=== PATIENT | female | born 2000 | race American Indian/Alaskan Native ===

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

== ENCOUNTER 2021-06-23 11:10 | Emergency (ER) | payer MEDICAID ==
[2021-06-23] MEDS ORDERED: ONDANSETRON 4 MG ODT TAB PO ONE (13:01)
--- NOTE | 2021-06-23 13:08 | Emergency Department Report ---
ED Female HPI - General Chief complaint: Abdominal Pain Stated complaint: NAUSEA/VOMITTING Time Seen by Provider: 06/23/21 12:58 Source: patient Mode of arrival: Ambulatory Limitations: No Limitations - History of Present Illness Initial comments: 20-year-old -A[place]ij[place] female presents to the emergency room complaining of nausea and vomiting and pelvic discomfort. She denies any vaginal bleeding. She states that she just found out she was 4 days ago. Patient has not followed up with her SPARKER AND PATCHER. Her last menstrual cycle was 05/15/2021. She is 1. She states that her test was done by urine. MD Complaint: pelvic pain, other (nausea and vomiting) Onset/Timin -: days(s) Location: suprapubic Severity: moderate Quality: cramping, sharp Consistency: intermittent Improves with: none Worsens with: none Are you Now?: Yes Last Menstrual Period: 05/15/21 EDC: 02/19/22 Associated Symptoms: abdominal pain, nausea/vomiting, loss of appetite. denies: vaginal discharge, vaginal bleeding, fever/chills - Related Data Sexually active: Yes : 1 (found out yesterday she was . ) Previous Rx's Medication Instructions Recorded Last Taken Type metroNIDAZOLE [Flagyl] 500 mg PO Q12HR #14 tab 07/22/19 Unknown Rx Azithromycin 1,000 mg PO ONCE #2 tablet 12/02/19 Unknown Rx Ibuprofen [Motrin] 600 mg PO Q8H PRN #20 tablet 12/02/19 Unknown Rx Clotrimazole [Antifungal] 113 gm TP BID 21 Days #1 tube 12/16/19 Unknown Rx Fluconazole (Nf) [Diflucan TAB] 150 mg PO ONCE 1 Days #1 tablet 12/16/19 Unknown Rx Ibuprofen [Motrin Ib] 600 - 800 mg PO TID PRN #20 capsule 03/01/20 Unknown Rx Sulfamethoxazole/Trimethoprim 1 each PO BID 5 Days #10 tablet 03/01/20 Unknown Rx [Bactrim DS TAB] Nitrofurantoin [place]/M-Cryst 100 mg PO Q12HR 7 Days #14 capsule 06/23/21 Unknown Rx [Macrobid CAP] Ondansetron [Zofran Odt] 4 mg PO Q8HR PRN #12 tab.rapdis 06/23/21 Unknown Rx Allergies Allergy/AdvReac Type Severity Reaction Status Date / Time No Known Allergies Allergy Verified 07/21/19 19:54 ED Review of Systems ROS: Stated complaint: NAUSEA/VOMITTING Other details as noted in HPI Comment: All other systems reviewed and negative ED Past Medical Hx - Social History Smoking Status: Never Smoker Substance Use Type: None - Medications Home Medications: Home Medications Medication Instructions Recorded Confirmed Last Taken Type metroNIDAZOLE [Flagyl] 500 mg PO Q12HR #14 tab 07/22/19 Unknown Rx Azithromycin 1,000 mg PO ONCE #2 tablet 12/02/19 Unknown Rx Ibuprofen [Motrin] 600 mg PO Q8H PRN #20 tablet 12/02/19 Unknown Rx Clotrimazole [Antifungal] 113 gm TP BID 21 Days #1 tube 12/16/19 Unknown Rx Fluconazole (Nf) [Diflucan TAB] 150 mg PO ONCE 1 Days #1 tablet 12/16/19 Unknown Rx Ibuprofen [Motrin Ib] 600 - 800 mg PO TID PRN #20 capsule 03/01/20 Unknown Rx Sulfamethoxazole/Trimethoprim 1 each PO BID 5 Days #10 tablet 03/01/20 Unknown Rx [Bactrim DS TAB] Nitrofurantoin [place]/M-Cryst 100 mg PO Q12HR 7 Days #14 capsule 06/23/21 Unknown Rx [Macrobid CAP] Ondansetron [Zofran Odt] 4 mg PO Q8HR PRN #12 tab.rapdis 06/23/21 Unknown Rx ED Physical Exam - General Limitations: No Limitations General appearance: alert, in no apparent distress - Head Head exam: Present: atraumatic, normocephalic - Eye Eye exam: Present: normal appearance - ENT ENT exam: Present: mucous membranes moist - Neck Neck exam: Present: normal inspection - Respiratory Respiratory exam: Present: normal lung sounds bilaterally. Absent: respiratory distress - Cardiovascular Cardiovascular Exam: Present: regular rate, normal rhythm. Absent: systolic murmur, diastolic murmur, rubs, gallop - GI/Abdominal GI/Abdominal exam: Present: soft, normal bowel sounds - Extremities Exam Extremities exam: Present: normal inspection - Back Exam Back exam: Present: normal inspection - Neurological Exam Neurological exam: Present: alert, oriented X3 - Psychiatric Psychiatric exam: Present: normal affect, normal mood - Skin Skin exam: Present: warm, dry, intact, normal color. Absent: rash ED Course Vital Signs 06/23/21 11:51 Temperature 98.6 F Pulse Rate 69 Respiratory 16 Rate Blood Pressure 112/48 [Left] O2 Sat by Pulse 100 Oximetry ED Medical Decision Making - Lab Data Result diagrams: 06/23/21 13:38 06/23/21 13:38 Lab Results 06/23/21 06/23/21 06/23/21 Range/Units 13:38 13:38 13:38 WBC 4.8 (4.5-11.0) K/mm3 RBC 4.61 (3.65-5.03) M/mm3 Hgb 13.1 (10.1-14.3) gm/dl Hct 40.5 (30.3-42.9) % MCV 88 (79-97) fl MCH 28 (28-32) pg MCHC 32 (30-34) % RDW 13.4 (13.2-15.2) % Plt Count 290 (140-440) K/mm3 Lymph % (Auto) 30.8 (13.4-35.0) % [place] % (Auto) 11.5 H (0.0-7.3) % Eos % (Auto) 0.0 (0.0-4.3) % Baso % (Auto) 0.7 (0.0-1.8) % Lymph # (Auto) 1.5 (1.2-5.4) K/mm3 [place] # (Auto) 0.5 (0.0-0.8) K/mm3 Eos # (Auto) 0.0 (0.0-0.4) K/mm3 Baso # (Auto) 0.0 (0.0-0.1) K/mm3 Seg Neutrophils % 57.0 (40.0-70.0) % Seg Neutrophils # 2.7 (1.8-7.7) K/mm3 Sodium 140 (137-145) mmol/L Potassium 3.9 (3.6-5.0) mmol/L Chloride 102.2 (98-107) mmol/L Carbon Dioxide 21 L (22-30) mmol/L Anion Gap 21 mmol/L BUN 8 (7-17) mg/dL Creatinine 0.5 L (0.6-1.2) mg/dL Estimated GFR > 60 ml/min BUN/Creatinine Ratio 16 % Glucose 117 H (65-100) mg/dL Calcium 9.6 (8.4-10.2) mg/dL Total Bilirubin 0.20 (0.1-1.2) mg/dL AST 14 (5-40) units/L ALT 8 (7-56) units/L Alkaline Phosphatase 72 (35-129) units/L Total Protein 8.3 H (6.3-8.2) g/dL Albumin 4.6 (3.9-5) g/dL Albumin/Globulin Ratio 1.2 % HCG, Quant 8886 H (0-4) mIU/mL Urine Color (Yellow) Urine Turbidity (Clear) Urine pH (5.0-7.0) Ur Specific [place] (1.003-1.030) Urine Protein (Negative) mg/dL Urine Glucose (UA) (Negative) mg/dL Urine Ketones (Negative) mg/dL Urine Blood (Negative) Urine Nitrite (Negative) Urine Bilirubin (Negative) Urine Urobilinogen (<2.0) mg/dL Ur Leukocyte Esterase (Negative) Urine WBC (Auto) (0.0-6.0) /HPF Urine RBC (Auto) (0.0-6.0) /HPF U Epithel Cells (Auto) (0-13.0) /HPF Urine Bacteria (Auto) (Negative) /HPF Urine Mucus /HPF Blood Type Ord Rhogam Gestat Weeks WEEKS 06/23/21 06/23/21 Range/Units 13:38 Unknown WBC (4.5-11.0) K/mm3 RBC (3.65-5.03) M/mm3 Hgb (10.1-14.3) gm/dl Hct (30.3-42.9) % MCV (79-97) fl MCH (28-32) pg MCHC (30-34) % RDW (13.2-15.2) % Plt Count (140-440) K/mm3 Lymph % (Auto) (13.4-35.0) % [place] % (Auto) (0.0-7.3) % Eos % (Auto) (0.0-4.3) % Baso % (Auto) (0.0-1.8) % Lymph # (Auto) (1.2-5.4) K/mm3 [place] # (Auto) (0.0-0.8) K/mm3 Eos # (Auto) (0.0-0.4) K/mm3 Baso # (Auto) (0.0-0.1) K/mm3 Seg Neutrophils % (40.0-70.0) % Seg Neutrophils # (1.8-7.7) K/mm3 Sodium (137-145) mmol/L Potassium (3.6-5.0) mmol/L Chloride (98-107) mmol/L Carbon Dioxide (22-30) mmol/L Anion Gap mmol/L BUN (7-17) mg/dL Creatinine (0.6-1.2) mg/dL Estimated GFR ml/min BUN/Creatinine Ratio % Glucose (65-100) mg/dL Calcium (8.4-10.2) mg/dL Total Bilirubin (0.1-1.2) mg/dL AST (5-40) units/L ALT (7-56) units/L Alkaline Phosphatase (35-129) units/L Total Protein (6.3-8.2) g/dL Albumin (3.9-5) g/dL Albumin/Globulin Ratio % HCG, Quant (0-4) mIU/mL Urine Color Yellow (Yellow) Urine Turbidity Slightly-cloudy (Clear) Urine pH 5.0 (5.0-7.0) Ur Specific [place] 1.026 (1.003-1.030) Urine Protein 30 mg/dl (Negative) mg/dL Urine Glucose (UA) Neg (Negative) mg/dL Urine Ketones 80 (Negative) mg/dL Urine Blood Sm (Negative) Urine Nitrite Pos (Negative) Urine Bilirubin Neg (Negative) Urine Urobilinogen < 2.0 (<2.0) mg/dL Ur Leukocyte Esterase Tr (Negative) Urine WBC (Auto) 8.0 H (0.0-6.0) /HPF Urine RBC (Auto) 3.0 (0.0-6.0) /HPF U Epithel Cells (Auto) 14.0 H (0-13.0) /HPF Urine Bacteria (Auto) 4+ (Negative) /HPF Urine Mucus 3+ /HPF Blood Type A POSITIVE Ord Rhogam Gestat Weeks Rh pos WEEKS - Radiology Data Radiology results: report reviewed [facility] [address] [place] [address] Ultrasound Report Signed Patient: SIMONE GATICA MR#: [id number] : 2000 Acct:[id number] Age/Sex: 20 / F ADM Date: 06/23/21 Loc: ED Attending Dr: Ordering Physician: CONNOR MANLEY Date of Service: 06/23/21 Procedure(s): US OB transvaginal Accession Number(s): [id number] cc: CONNOR MANLEY ULTRASOUND OBSTETRIC INDICATION / CLINICAL INFORMATION: Pelvic pain . TECHNIQUE: Transabdominal and Transvaginal. COMPARISON: None available. FINDINGS: GESTATIONAL SAC: Small intrauterine gestational sac YOLK SAC: Yolk sac visualized EMBRYO/FETUS: Not yet visualized. No heart tones detected ADNEXA: Right ovary within normal limits. Small 2.2 x 1.4 cm complex left ovarian corpus luteal cyst FREE FLUID: None. ADDITIONAL FINDINGS: None. IMPRESSION: 1. Probable early IUP. Follow-up beta-hCG and or sound recommended to confirm viability. Signer Name: Tim Rodriguez MD Signed: 06/23/2021 6:24 PM Workstation Name: [id number] Transcribed By: TL Dictated By: Tim Rodriguez MD Electronically Authenticated By: Tim Rodriguez MD Signed Date/Time: 06/23/211823 DD/ 20 TD/TT: Print Cancel - Medical Decision Making 20-year-old -Azerbaijani female presents to the emergency room complaining of nausea and vomiting and pelvic discomfort. She denies any vaginal bleeding. She states that she just found out she was 4 days ago. Patient has not followed up with her [facility]. Her last menstrual cycle was 05/15/2021. She is 1. She states that her test was done by urine. hCG is 8886. Ultrasound shows a very early IUP a recommend repeat quant level and repeat ultrasound. Patient's urinalysis shows she has a urinary tract infection patient be treated with Macrobid. Patient is referred to [facility] for repeat hCG recheck of her urine as well as a repeat ultrasound in 2 weeks. Critical care attestation.: If time is entered above; I have spent that time in minutes in the direct care of this critically ill patient, excluding procedure time. ED Disposition Clinical Impression: Nausea and vomiting during UTI (urinary tract infection) during Qualifiers: Trimester: first trimester Qualified Code(s): O23.41 - Unspecified infection of urinary tract in , first trimester Disposition: 01 HOME / SELF CARE / HOMELESS Is pt being admited?: No Does the pt Need Aspirin: No Condition: Stable Instructions: Abdominal Pain (ED), and Urinary Tract Infection, Hyperemesis Gravidarum Additional Instructions: hCG is 8886. Ultrasound shows a very early intrauterine . Urinalysis shows to have a urinary tract infection. You need to complete your antibiotics. Start your vitamins. Follow-up at [facility] for repeat hCG and ultr asound. Be sure to increase your water intake by 2 to 3 L daily. Prescriptions: Nitrofurantoin [place]/M-Cryst [Macrobid CAP] 100 mg PO Q12HR 7 Days #14 capsule Ondansetron [Zofran Odt] 4 mg PO Q8HR PRN #12 tab.rapdis PRN Reason: Nausea And Vomiting Referrals: PRIMARY CAREMD [Primary Care Provider] - 3-5 Days [facility] [Provider Group] - 3-5 Days [facility] [Provider Group] - 3-5 Days [facility] [Provider Group] - 3-5 Days Forms: Work/School Release Form(ED) Time of Disposition: 18:43
[2021-06-23 14:03] LABS: Basophils % (Auto) 0.7 % (0.0-1.8); Hematocrit 40.5 % (30.3-42.9); Hemoglobin 13.1 gm/dl (10.1-14.3); Lymphocytes # (Auto) 1.5 K/mm3 (1.2-5.4); Lymphocytes % (Auto) 30.8 % (13.4-35.0); Mean Corpuscular HGB Conc 32 % (30-34); Mean Corpuscular Volume 88 fl (79-97); Monocytes # (Auto) 0.5 K/mm3 (0.0-0.8); Monocytes % (Auto) 11.5 % (0.0-7.3); Platelet Count 290 K/mm3 (140-440); Red Blood Count 4.61 M/mm3 (3.65-5.03); Red Cell Distribution Width 13.4 % (13.2-15.2)
[2021-06-23 14:14] LABS: Bacteria,Urine 4+ /HPF (Negative); Bilirubin,Urine NEG (Negative); Blood,Urine SM (Negative); Color,Urine Yellow (Yellow); Mucus,Urine 3+ /HPF; Urobilinogen,Urine < 2.0 mg/dL (<2.0)
[2021-06-23 14:45] LABS: Alanine Aminotransferase 8 units/L (7-56); Albumin 4.6 g/dL (3.9-5); Blood Urea Nitrogen 8 mg/dL (7-17); Calcium 9.6 mg/dL (8.4-10.2); Hemolysis Index 6
[2021-06-23 14:46] LABS: BUN/Creatinine Ratio 16
--- NOTE | 2021-06-23 18:28 | Ultrasound Report ---
ULTRASOUND OBSTETRIC INDICATION / CLINICAL INFORMATION: Pelvic pain . TECHNIQUE: Transabdominal and Transvaginal. COMPARISON: None available. FINDINGS: GESTATIONAL SAC: Small intrauterine gestational sac YOLK SAC: Yolk sac visualized EMBRYO/FETUS: Not yet visualized. No heart tones detected ADNEXA: Right ovary within normal limits. Small 2.2 x 1.4 cm complex left ovarian corpus luteal cyst FREE FLUID: None. ADDITIONAL FINDINGS: None. IMPRESSION: 1. Probable early IUP. Follow-up beta-hCG and or sound recommended to confirm viability. Signer Name: Tim Rodriguez MD Signed: 06/23/2021 6:24 PM Workstation Name: [id number]
[2021-06-23 18:48] VITALS: BP 115/37
== END 2021-06-23 18:53 | disposition home or self-care (01) ==
LOC: ED 11:10
DX: O21.9 Vomiting of pregnancy, unspecified (principal); O23.41 Unspecified infection of urinary tract in pregnancy, first trimester; N39.0 Urinary tract infection, site not specified
CPT/HCPCS: 36415; 76801; 76817; 80053; 81001; 84702; 85025; 86900; 86901; 99284; J3490; Q0162

== ENCOUNTER 2022-01-31 16:00 | Inpatient (IN) | payer MEDICAID ==
[2022-01-31] MEDS ORDERED: LACTATED RINGERS 1,000 ML IV ONE (17:15)
[2022-01-31] MEDS ORDERED: LOPERAMIDE 2 MG CAP PO PRN (17:30)
[2022-01-31] MEDS ORDERED: miSOPROStol 200 MCG TAB PR PRN (17:30)
[2022-01-31] MEDS ORDERED: ACETAMINOPHEN 325 MG TAB PO PRN (17:30)
[2022-01-31] MEDS ORDERED: NalbUPHINE 10 MG/1 ML INJ IV PRN (17:30)
[2022-01-31] MEDS ORDERED: MINERAL OIL 30 ML ORAL LIQD PO PRN (17:30)
[2022-01-31] MEDS ORDERED: ePHEDrine SULFATE 50 MG/1 ML INJ IV PRN (17:30)
[2022-01-31] MEDS ORDERED: METHYLERGONOVINE MALEATE 0.2 MG/ML VIAL IM PRN (17:30)
[2022-01-31] MEDS ORDERED: LACTATED RINGERS 1,000 ML IV SCH (17:30)
[2022-01-31] MEDS ORDERED: DINOPROSTONE 10 MG VAG SUPP VG SCH (17:30)
[2022-01-31] MEDS ORDERED: CARBOPROST TROMETHAMINE 250 MCG/1 ML INJ IM PRN (17:30)
[2022-01-31] MEDS ORDERED: TERBUTALINE 1 MG/1 ML INJ SUB-Q PRN (17:30)
[2022-01-31] MEDS ORDERED: OXYTOCIN 10 UNIT/1 ML INJ IM PRN (17:30)
--- NOTE | 2022-01-31 17:36 | History and Physical Report ---
History of Present Illness Date of examination: 01/31/22 Chief complaint: sent from office for testing d/t IUGR History of present illness: EDC Confirmation: 02/19/2022 Past History : 1 Past Medical History: Reviewed and updated today: Negative Past Surgical History: Reviewed and updated today: Negative General Comments - FH: Mother- , heart disease, thyroid disorder, HTN Social History: Previous ETOH use, quit with Risk Factors: Smoked Tobacco Use: Never smoker Smokeless Tobacco Use: Never Passive Smoke Exposure: no HIV High Risk Behavior: no Exercise: no Seatbelt Use: 100 % No Dietary Counseling Reason: pn yes Alcohol Use: no Drug Use: no Past Medical History Anesthesia Complications: negative Anemia: negative Autoimmune Disorder: negative Bleeding Disorder: negative Blood Transfusions: negative Breast Disease: negative Diabetes: negative Heart Disease: negative Hypertension: negative Hepatitis/Liver Disease: negative Kidney Disease/UTI: negative Neurologic/Epilepsy/Migraines: negative Phlebitis/Varicosities: negative Psychiatric: negative Pulmonary Disease/Asthma: negative Thyroid Disease: negative Hospitalizations: negative Surgery (Non-accessioner): Negative Infertility: negative Uterine Anomaly: negative Family Hx: Mother- , heart disease, thyroid disorder, HTN Social Hx: Previous ETOH use, quit with Infection History Hx of STD: chlamydia HIV Risk Eval: no Personal hx. of genital herpes: no Genetic History Congenital Heart Defect: Mom: no Meron Disease: Mom: no Thalassemia Mom: no Neural Tube Defect Mom: no Down's Syndrome Mom: no Quique-Sachs Mom: no Sickle Cell Disease/Trait Mom: no Hemophilia Mom: no Muscular Dystrophy Mom: no Cystic Fibrosis Mom: no [place] Chorea Mom: no Mental Retardation Mom: no Fragile X Mom: no Other Genetic/Chromosomal Disorder Mom: no Child w/other defect Mom: no Past History Past Medical History: other (see HPI) Past Surgical History: other (see HPI) CAREER LAW CLERK History: other (see HPI) Family/Genetic History: other (see HPI) Social history: single - Obstetrical History Expected Date of Delivery: 02/19/22 Actual Gestation: 37 Week(s) 2 Day(s) : 1 Para: 0 Hx # Term Pregnancies: 0 Number of Pregnancies: 0 Spontaneous Abortions: 0 Induced : 0 Number of Living Children: 0 Medications and Allergies Allergies Allergy/AdvReac Type Severity Reaction Status Date / Time No Known Allergies Allergy Verified 07/21/19 19:54 Home Medications Medication Instructions Recorded Confirmed Last Taken Type metroNIDAZOLE [Flagyl] 500 mg PO Q12HR #14 tab 07/22/19 Unknown Rx Azithromycin 1,000 mg PO ONCE #2 tablet 12/02/19 Unknown Rx Ibuprofen [Motrin] 600 mg PO Q8H PRN #20 tablet 12/02/19 Unknown Rx Clotrimazole [Antifungal] 113 gm TP BID 21 Days #1 tube 12/16/19 Unknown Rx Fluconazole (Nf) [Diflucan TAB] 150 mg PO ONCE 1 Days #1 tablet 12/16/19 Unknown Rx Ibuprofen [Motrin Ib] 600 - 800 mg PO TID PRN #20 capsule 03/01/20 Unknown Rx Sulfamethoxazole/Trimethoprim 1 each PO BID 5 Days #10 tablet 03/01/20 Unknown Rx [Bactrim DS TAB] Nitrofurantoin [place]/M-Cryst 100 mg PO Q12HR 7 Days #14 capsule 06/23/21 Unknown Rx [Macrobid CAP] Ondansetron [Zofran Odt] 4 mg PO Q8HR PRN #12 tab.rapdis 06/23/21 Unknown Rx Active Meds: Active Medications Acetaminophen (Acetaminophen 325 Mg Tab) 650 mg PO Q4H PRN PRN Reason: Pain, Mild (1-3) Carboprost Tromethamine (Carboprost Tromethamine 250 Mcg/1 Ml Inj) 250 mcg IM ONCE PRN PRN Reason: Uterine Bleeding Dinoprostone (Dinoprostone 10 Mg Vag Supp) 10 mg VG ONCE ONE Stop: 01/31/22 17:31 Ephedrine Sulfate (Ephedrine Sulfate 50 Mg/1 Ml Inj) 10 mg IV Q2M PRN PRN Reason: Hypotension Lactated Ringer's (Lactated Ringers) 1,000 mls @ 999 mls/hr IV BOLUS ONE Stop: 01/31/22 18:15 Lactated Ringer's (Lactated Ringers) 1,000 mls @ 125 mls/hr IV DIRECT JIA Oxytocin/Sodium Chloride (Pitocin/Ns 30 Unit/500ml) 30 units in 500 mls @ 40 mls/hr IV TITR JIA; Protocol Lidocaine (Lidocaine (2%) 20 Mg/1 Ml Vial 20 Ml Mdv) 20 ml INFILTRATI ONCE ONE Stop: 01/31/22 17:31 Loperamide HCl (Loperamide 2 Mg Cap) 2 mg PO ONCE PRN PRN Reason: give with Hemabate Methylergonovine Maleate (Methylergonovine Maleate 0.2 Mg/Ml Vial) 0.2 mg IM ONCE PRN PRN Reason: Uterine Bleeding Mineral Oil (Mineral Oil 30 Ml Oral Liqd) 30 ml PO QHS PRN PRN Reason: Constipation Misoprostol (Misoprostol 200 Mcg Tab) 800 mcg PA ONCE PRN PRN Reason: Uterine Bleeding Nalbuphine HCl (Nalbuphine 10 Mg/1 Ml Inj) 10 mg IV Q2H PRN PRN Reason: Pain, Moderate (4-6) Ondansetron HCl (Ondansetron 4 Mg/2 Ml Inj) 4 mg IV Q8H PRN PRN Reason: Nausea And Vomiting Oxytocin (Oxytocin 10 Unit/1 Ml Inj) 10 unit IM ONCE PRN PRN Reason: Uterine Bleeding Terbutaline Sulfate (Terbutaline 1 Mg/1 Ml Inj) 0.25 mg SUB-Q ONCE PRN PRN Reason: Hyperstimulation/Hypertonicity Review of Systems All systems: negative - Vital Signs Vital signs: Vital Signs Pulse Pulse Ox 74 99 01/31/22 16:51 01/31/22 16:51 Temp Pulse Resp BP Pulse Ox 98.7 F 83 20 111/56 99 01/31/22 16:58 01/31/22 17:31 01/31/22 16:58 01/31/22 16:58 01/31/22 17:31 - Physical Exam Breasts: Positive: normal Cardiovascular: Regular rate Lungs: Positive: Normal air movement Abdomen: Positive: normal appearance, soft Genitourinary (Female): Positive: normal external genitalia, normal perenium Vulva: both: normal Vagina: Positive: normal moisture Uterus: Positive: normal size, normal contour Extremities: Positive: normal Deep Tendon Reflex Grade: Normal +2 - Obstetrical FHR: auscultation normal, category 1 Uterine Contraction Monitor Mode: External Uterine Contraction Pattern: Absent Uterine Tone Measurement Phase: Resting Results All other labs normal. Assessment and Plan 21y/o @ 37+2 weeks, complicated by AFP + trisomy 18. amnio normal. Pt did not f/u with AMFM after amnio. She started measuring S<D @ 34 weeks. Last week EFW 8th% in our office. testing today showed NL dopplers, BPP 8/8 and EFW 2nd% (9g). Plan made with patient and Dr. Henriquez to start IOL d/t severe growth restriction. All questions addressed with patient, reviewed expectations of serial IOL. GBS NEG - Patient Problems (1) 37 weeks gestation of Current Visit: Yes Status: Acute (2) IUGR (intrauterine growth restriction) Current Visit: Yes Status: Acute Plan to address problem: Start serial IOL tonight Cont efm/toco
--- NOTE | 2022-01-31 17:51 | Ultrasound Report ---
OB ultrasound Biophysical profile INDICATION: well-being FINDINGS: Biophysical profile measures 8 out of 8 with a heart rate of 1:30. There is a single live intrauterine in cephalic position. DIAMANTE measures 8.1 cm. BPD measures 34 weeks 0 days. Head circumference 32 weeks 3 days. Abdominal circumference 31 weeks 4 days and femoral length 34 wee ks 2 days. weight 20 29 g. Ultrasound age 33 weeks 1 day. heart rate 135. Umbilical cord Doppler was performed. Normal waveform and persistent. Resistive indices 0.49 with nor mal waveform. IMPRESSION: Single live intrauterine as described above. Ultrasound age 33 weeks 1 day however clinical age is 37 weeks 3 days. Evaluation with WEARING APPAREL ASSEMBLER, examination and history recommended. Signer Name: Darwin Bautista MD Signed: 01/31/2022 5:46 PM Workstation Name: [id number]
--- NOTE | 2022-01-31 17:51 | Ultrasound Report ---
OB ultrasound Biophysical profile INDICATION: well-being FINDINGS: Biophysical profile measures 8 out of 8 with a heart rate of 1:30. There is a single live intrauterine in cephalic position. DIAMANTE measures 8.1 cm. BPD measures 34 weeks 0 days. Head circumference 32 weeks 3 days. Abdominal circumference 31 weeks 4 days and femoral length 34 wee ks 2 days. weight 20 29 g. Ultrasound age 33 weeks 1 day. heart rate 135. Umbilical cord Doppler was performed. Normal waveform and persistent. Resistive indices 0.49 with nor mal waveform. IMPRESSION: Single live intrauterine as described above. Ultrasound age 33 weeks 1 day however clinical age is 37 weeks 3 days. Evaluation with [employer], examination and history recommended. Signer Name: Darwin Bautista MD Signed: 01/31/2022 5:46 PM Workstation Name: [id number]
--- NOTE | 2022-01-31 17:51 | Ultrasound Report ---
OB ultrasound Biophysical profile INDICATION: well-being FINDINGS: Biophysical profile measures 8 out of 8 with a heart rate of 1:30. There is a single live intrauterine in cephalic position. DIAMANTE measures 8.1 cm. BPD measures 34 weeks 0 days. Head circumference 32 weeks 3 days. Abdominal circumference 31 weeks 4 days and femoral length 34 wee ks 2 days. weight 20 29 g. Ultrasound age 33 weeks 1 day. heart rate 135. Umbilical cord Doppler was performed. Normal waveform and persistent. Resistive indices 0.49 with nor mal waveform. IMPRESSION: Single live intrauterine as described above. Ultrasound age 33 weeks 1 day however clinical age is 37 weeks 3 days. Evaluation with PHARMACY STOCK CLERK, examination and history recommended. Signer Name: Darwin Bautista MD Signed: 01/31/2022 5:46 PM Workstation Name: [id number]
[2022-01-31] MEDS ORDERED: OXYTOCIN DRIP 30 UNITS/500 ML BAG IV SCH (18:00)
[2022-01-31] MEDS ORDERED: LIDOCAINE (2%) 20 MG/1 ML VIAL 20 ML MDV INFILTRATI ONE (18:00)
[2022-01-31 19:44] LABS: Bilirubin,Urine Negative (Negative); Color,Urine Yellow (Yellow)
[2022-01-31 19:45] LABS: Blood,Urine Negative (Negative)
[2022-01-31 20:26] LABS: Bacteria,Urine 1+ /HPF (Negative); Mucus,Urine 3+ /HPF
[2022-01-31 21:30] LABS: Hematocrit 35.9 % (30.3-42.9); Mean Corpuscular HGB Conc 34 % (30-34); Mean Corpuscular Volume 87 fl (79-97); Platelet Count 212 K/mm3 (140-440); Red Blood Count 4.11 M/mm3 (3.65-5.03); Red Cell Distribution Width 13.4 % (13.2-15.2)
[2022-02-01] MEDS: ONDANSETRON 4 MG/2 ML INJ IV PRN (07:32)
--- NOTE | 2022-02-01 08:52 | Progress Note ---
Assessment and Plan A: 21y/o 37.3 weeks gestation IOL for IUGR - Patient Problems (1) IUGR (intrauterine growth restriction) Current Visit: Yes Status: Acute Plan to address problem: IOL- Pitocin once cervidil removed Pain- IV or Epidural prn (2) 37 weeks gestation of Current Visit: Yes Status: Acute Plan to address problem: Continuos monitoring Subjective - Subjective Date of service: 02/01/22 Principal diagnosis: 37.3 IUGR Interval history: Pt in bed resting quietly, no complaints at this time. States not feeling any ctxs, denies LOF, VB. reports movement. Discussed plan of care and expectations, verbalized understanding. Pitocin to start once cervidil removed, showered, and breakfast. Patient reports: movement normal, no new complaints, no loss of fluid, no vaginal bleeding, no contractions Objective - Vital Signs Vital Signs: Vital Signs - 12hr 01/31/22 01/31/22 01/31/22 20:53 20:58 21:03 Temperature Pulse Rate 81 93 H 77 Respiratory Rate Blood Pressure O2 Sat by Pulse 98 99 98 Oximetry O2 Sat by Pulse Oximetry [ Bilateral] 01/31/22 01/31/22 01/31/22 21:08 21:11 21:13 Temperature 98.3 F Pulse Rate 69 72 Respiratory 18 Rate Blood Pressure O2 Sat by Pulse 99 99 100 Oximetry O2 Sat by Pulse 99 Oximetry [ Bilateral] 01/31/22 01/31/22 01/31/22 21:18 21:23 21:28 Temperature Pulse Rate 72 68 65 Respiratory Rate Blood Pressure O2 Sat by Pulse 99 99 99 Oximetry O2 Sat by Pulse Oximetry [ Bilateral] 01/31/22 01/31/22 01/31/22 21:35 21:40 21:45 Temperature Pulse Rate 66 70 62 Respiratory Rate Blood Pressure O2 Sat by Pulse 98 99 100 Oximetry O2 Sat by Pulse Oximetry [ Bilateral] 01/31/22 01/31/22 01/31/22 21:50 21:55 22:00 Temperature Pulse Rate 76 72 70 Respiratory Rate Blood Pressure O2 Sat by Pulse 99 99 99 Oximetry O2 Sat by Pulse Oximetry [ Bilateral] 01/31/22 01/31/22 01/31/22 22:05 22:10 22:15 Temperature Pulse Rate 78 67 69 Respiratory Rate Blood Pressure O2 Sat by Pulse 99 99 99 Oximetry O2 Sat by Pulse Oximetry [ Bilateral] 01/31/22 01/31/22 01/31/22 22:20 22:25 22:30 Temperature Pulse Rate 68 81 73 Respiratory Rate Blood Pressure O2 Sat by Pulse 99 98 99 Oximetry O2 Sat by Pulse Oximetry [ Bilateral] 01/31/22 01/31/22 01/31/22 22:35 22:40 22:45 Temperature Pulse Rate 71 90 71 Respiratory Rate Blood Pressure O2 Sat by Pulse 98 99 99 Oximetry O2 Sat by Pulse Oximetry [ Bilateral] 01/31/22 01/31/22 01/31/22 22:50 22:55 23:00 Temperature Pulse Rate 72 72 82 Respiratory Rate Blood Pressure O2 Sat by Pulse 99 99 99 Oximetry O2 Sat by Pulse Oximetry [ Bilateral] 01/31/22 01/31/22 01/31/22 23:05 23:10 23:15 Temperature Pulse Rate 70 75 75 Respiratory Rate Blood Pressure O2 Sat by Pulse 99 99 99 Oximetry O2 Sat by Pulse Oximetry [ Bilateral] 01/31/22 01/31/22 01/31/22 23:20 23:25 23:30 Temperature Pulse Rate 71 86 78 Respiratory Rate Blood Pressure O2 Sat by Pulse 99 100 99 Oximetry O2 Sat by Pulse Oximetry [ Bilateral] 01/31/22 01/31/22 01/31/22 23:35 23:40 23:45 Temperature Pulse Rate 74 75 104 H Respiratory Rate Blood Pressure O2 Sat by Pulse 99 98 99 Oximetry O2 Sat by Pulse Oximetry [ Bilateral] 01/31/22 01/31/22 02/01/22 23:50 23:55 00:00 Temperature 98.4 F Pulse Rate 77 72 75 Respiratory 16 Rate Blood Pressure O2 Sat by Pulse 99 99 99 Oximetry O2 Sat by Pulse Oximetry [ Bilateral] 02/01/22 02/01/22 02/01/22 00:04 00:05 00:10 Temperature Pulse Rate 63 64 79 Respiratory Rate Blood Pressure 104/53 O2 Sat by Pulse 99 99 Oximetry O2 Sat by Pulse Oximetry [ Bilateral] 02/01/22 02/01/22 02/01/22 00:15 00:20 00:25 Temperature Pulse Rate 76 72 80 Respiratory Rate Blood Pressure O2 Sat by Pulse 100 99 99 Oximetry O2 Sat by Pulse Oximetry [ Bilateral] 02/01/22 02/01/22 02/01/22 00:30 00:35 00:41 Temperature Pulse Rate 74 64 76 Respiratory Rate Blood Pressure O2 Sat by Pulse 99 99 96 Oximetry O2 Sat by Pulse Oximetry [ Bilateral] 02/01/22 02/01/22 02/01/22 00:46 00:52 00:57 Temperature Pulse Rate 73 67 86 Respiratory Rate Blood Pressure O2 Sat by Pulse 100 100 99 Oximetry O2 Sat by Pulse Oximetry [ Bilateral] 02/01/22 02/01/22 02/01/22 01:02 01:07 01:12 Temperature Pulse Rate 93 H 76 84 Respiratory Rate Blood Pressure O2 Sat by Pulse 99 99 98 Oximetry O2 Sat by Pulse Oximetry [ Bilateral] 02/01/22 02/01/22 02/01/22 01:17 01:22 01:27 Temperature Pulse Rate 71 74 63 Respiratory Rate Blood Pressure O2 Sat by Pulse 98 99 100 Oximetry O2 Sat by Pulse Oximetry [ Bilateral] 02/01/22 02/01/22 02/01/22 01:34 01:39 01:44 Temperature Pulse Rate 63 66 85 Respiratory Rate Blood Pressure O2 Sat by Pulse 99 99 100 Oximetry O2 Sat by Pulse Oximetry [ Bilateral] 02/01/22 02/01/22 02/01/22 01:49 01:54 01:59 Temperature Pulse Rate 68 63 68 Respiratory Rate Blood Pressure O2 Sat by Pulse 99 99 99 Oximetry O2 Sat by Pulse Oximetry [ Bilateral] 02/01/22 02/01/22 02/01/22 02:04 02:09 02:14 Temperature Pulse Rate 68 60 63 Respiratory Rate Blood Pressure O2 Sat by Pulse 99 98 98 Oximetry O2 Sat by Pulse Oximetry [ Bilateral] 02/01/22 02/01/22 02/01/22 02:19 02:24 02:29 Temperature Pulse Rate 60 61 63 Respiratory Rate Blood Pressure O2 Sat by Pulse 98 97 98 Oximetry O2 Sat by Pulse Oximetry [ Bilateral] 02/01/22 02/01/22 02/01/22 02:34 02:39 02:44 Temperature Pulse Rate 64 61 62 Respiratory Rate Blood Pressure O2 Sat by Pulse 99 99 99 Oximetry O2 Sat by Pulse Oximetry [ Bilateral] 02/01/22 02/01/22 02/01/22 02:49 02:54 02:59 Temperature Pulse Rate 60 65 76 Respiratory Rate Blood Pressure O2 Sat by Pulse 98 99 100 Oximetry O2 Sat by Pulse Oximetry [ Bilateral] 02/01/22 02/01/22 02/01/22 04:32 06:45 06:50 Temperature 97.8 F Pulse Rate 57 L 72 Respiratory 16 Rate Blood Pressure O2 Sat by Pulse 98 96 100 Oximetry O2 Sat by Pulse Oximetry [ Bilateral] 02/01/22 02/01/22 02/01/22 06:55 07:00 07:02 Temperature Pulse Rate 67 63 67 Respiratory Rate Blood Pressure 115/56 O2 Sat by Pulse 99 100 Oximetry O2 Sat by Pulse Oximetry [ Bilateral] 02/01/22 02/01/22 02/01/22 07:05 07:10 07:15 Temperature 98.0 F Pulse Rate 77 72 68 Respiratory 18 Rate Blood Pressure O2 Sat by Pulse 100 100 100 Oximetry O2 Sat by Pulse Oximetry [ Bilateral] 02/01/22 02/01/22 02/01/22 07:20 07:25 07:30 Temperature Pulse Rate 69 117 H 74 Respiratory Rate Blood Pressure O2 Sat by Pulse 100 99 100 Oximetry O2 Sat by Pulse Oximetry [ Bilateral] 02/01/22 02/01/22 02/01/22 07:36 07:41 07:46 Temperature Pulse Rate 63 82 63 Respiratory Rate Blood Pressure O2 Sat by Pulse 99 99 100 Oximetry O2 Sat by Pulse Oximetry [ Bilateral] 02/01/22 02/01/22 02/01/22 07:51 07:56 08:01 Temperature Pulse Rate 62 64 58 L Respiratory Rate Blood Pressure O2 Sat by Pulse 100 100 100 Oximetry O2 Sat by Pulse Oximetry [ Bilateral] 02/01/22 02/01/22 02/01/22 08:06 08:11 08:16 Temperature Pulse Rate 59 L 57 L 60 Respiratory Rate Blood Pressure O2 Sat by Pulse 99 100 99 Oximetry O2 Sat by Pulse Oximetry [ Bilateral] - Exam Breasts: normal Cardiovascular: Regular rate Lungs: Normal air movement Abdomen: Present: normal appearance, soft Uterus: Present: other (gravid) FHR: category 1 Uterine Contraction Monitor Mode: External Uterine Contraction Pattern: Absent Extremities: normal Deep Tendon Reflex Grade: Normal +2 - Labs Labs: Abnormal Labs 01/31/22 01/31/22 16:54 20:44 WBC 11.4 H U Epithel Cells (Auto) 22.0 H Laboratory Results - last 24 hr 01/31/22 01/31/22 01/31/22 16:54 20:44 20:44 WBC 11.4 H RBC 4.11 Hgb 12.0 Hct 35.9 MCV 87 MCH 29 MCHC 34 RDW 13.4 Plt Count 212 Urine Color Yellow Urine Turbidity Clear Urine pH 6.0 Ur Specific [place] 1.030 Urine Protein 30 mg/dl Urine Glucose (UA) Negative Urine Ketones Negative Urine Blood Negative Urine Nitrite Negative Urine Bilirubin Negative Urine Urobilinogen 0.0 Ur Leukocyte Esterase 1+ Urine WBC (Auto) 3.0 Urine RBC (Auto) 5.0 U Epithel Cells (Auto) 22.0 H Urine Bacteria (Auto) 1+ Urine Mucus 3+ Syphilis IgG/IgM Ab Nonreactive Blood Type Antibody Screen 01/31/22 20:44 WBC RBC Hgb Hct MCV MCH MCHC RDW Plt Count Urine Color Urine Turbidity Urine pH Ur Specific [place] Urine Protein Urine Glucose (UA) Urine Ketones Urine Blood Urine Nitrite Urine Bilirubin Urine Urobilinogen Ur Leukocyte Esterase Urine WBC (Auto) Urine RBC (Auto) U Epithel Cells (Auto) Urine Bacteria (Auto) Urine Mucus Syphilis IgG/IgM Ab Blood Type A POSITIVE Antibody Screen Negative
[2022-02-01] MEDS ORDERED: OXYTOCIN DRIP 30 UNITS/500 ML BAG IV SCH (13:00)
--- NOTE | 2022-02-01 17:49 | Progress Note ---
Assessment and Plan A: 21 y.o. @ 37.3 wks, IOL d/t IUGR. - Patient Problems (1) IUGR (intrauterine growth restriction) Current Visit: Yes Status: Acute (2) 37 weeks gestation of Current Visit: Yes Status: Acute Plan to address problem: Will turn off Pitocin at 1900. Allow pt to shower and eat then low dose Pitocin @ 2100. Subjective - Subjective Date of service: 02/01/22 Principal diagnosis: 37.3 IUGR Interval history: Spoke with patient and her family regarding IOL process, medications used. Pt states that she was not understanding the reason for the IOL. Discussed again the IOL, medication used. We also discussed the plan of care the night. Will allow the patient to have dinner and then start low dose Pitocin after dinner around 2100. Pt verbalized understanding and agrees to plan. Patient reports: movement normal, no new complaints, no loss of fluid, no vaginal bleeding, no contractions Objective - Vital Signs Vital Signs: Vital Signs - 12hr 02/01/22 02/01/22 02/01/22 06:45 06:50 06:55 Temperature Pulse Rate 57 L 72 67 Respiratory Rate Blood Pressure O2 Sat by Pulse 96 100 99 Oximetry O2 Sat by Pulse Oximetry [ Bilateral] 02/01/22 02/01/22 02/01/22 07:00 07:02 07:05 Temperature Pulse Rate 63 67 77 Respiratory Rate Blood Pressure 115/56 O2 Sat by Pulse 100 100 Oximetry O2 Sat by Pulse Oximetry [ Bilateral] 02/01/22 02/01/22 02/01/22 07:10 07:15 07:20 Temperature 98.0 F Pulse Rate 72 68 69 Respiratory 18 Rate Blood Pressure O2 Sat by Pulse 100 100 100 Oximetry O2 Sat by Pulse 100 Oximetry [ Bilateral] 02/01/22 02/01/22 02/01/22 07:25 07:30 07:36 Temperature Pulse Rate 117 H 74 63 Respiratory Rate Blood Pressure O2 Sat by Pulse 99 100 99 Oximetry O2 Sat by Pulse Oximetry [ Bilateral] 02/01/22 02/01/22 02/01/22 07:41 07:46 07:51 Temperature Pulse Rate 82 63 62 Respiratory Rate Blood Pressure O2 Sat by Pulse 99 100 100 Oximetry O2 Sat by Pulse Oximetry [ Bilateral] 08/03/22 08/03/22 08/03/22 07:56 08:01 08:06 Temperature Pulse Rate 64 58 L 59 L Respiratory Rate Blood Pressure O2 Sat by Pulse 100 100 99 Oximetry O2 Sat by Pulse Oximetry [ Bilateral] 02/01/22 02/01/22 02/01/22 08:11 08:16 09:12 Temperature Pulse Rate 57 L 60 59 L Respiratory Rate Blood Pressure 103/55 O2 Sat by Pulse 100 99 Oximetry O2 Sat by Pulse Oximetry [ Bilateral] 02/01/22 02/01/22 02/01/22 10:12 12:10 12:23 Temperature 98.3 F Pulse Rate 67 64 Respiratory 18 Rate Blood Pressure 111/64 101/49 O2 Sat by Pulse 100 Oximetry O2 Sat by Pulse Oximetry [ Bilateral] 02/01/22 02/01/22 02/01/22 12:38 12:42 12:43 Temperature Pulse Rate 63 60 63 Respiratory Rate Blood Pressure 97/46 O2 Sat by Pulse 100 99 Oximetry O2 Sat by Pulse Oximetry [ Bilateral] 02/01/22 02/01/22 02/01/22 12:48 12:49 12:52 Temperature Pulse Rate 66 60 71 Respiratory Rate Blood Pressure 95/53 O2 Sat by Pulse 99 93 Oximetry O2 Sat by Pulse Oximetry [ Bilateral] 02/01/22 02/01/22 02/01/22 12:53 12:58 13:03 Temperature Pulse Rate 62 64 77 Respiratory Rate Blood Pressure O2 Sat by Pulse 100 100 98 Oximetry O2 Sat by Pulse Oximetry [ Bilateral] 02/01/22 02/01/22 02/01/22 13:08 13:13 13:18 Temperature Pulse Rate 67 67 66 Respiratory Rate Blood Pressure O2 Sat by Pulse 99 99 99 Oximetry O2 Sat by Pulse Oximetry [ Bilateral] 02/01/22 02/01/22 02/01/22 13:20 13:23 13:28 Temperature Pulse Rate 63 61 59 L Respiratory Rate Blood Pressure 86/42 O2 Sat by Pulse 100 100 Oximetry O2 Sat by Pulse Oximetry [ Bilateral] 02/01/22 02/01/22 02/01/22 13:33 13:38 13:41 Temperature Pulse Rate 58 L 57 L 61 Respiratory Rate Blood Pressure 98/54 O2 Sat by Pulse 100 100 Oximetry O2 Sat by Pulse Oximetry [ Bilateral] 02/01/22 02/01/22 02/01/22 13:50 13:59 14:00 Temperature Pulse Rate 63 66 63 Respiratory Rate Blood Pressure O2 Sat by Pulse 93 58 L 75 L Oximetry O2 Sat by Pulse Oximetry [ Bilateral] 02/01/22 02/01/22 02/01/22 14:04 14:09 14:14 Temperature Pulse Rate 62 65 63 Respiratory Rate Blood Pressure O2 Sat by Pulse 100 100 100 Oximetry O2 Sat by Pulse Oximetry [ Bilateral] 02/01/22 02/01/22 02/01/22 14:19 14:24 14:29 Temperature Pulse Rate 69 62 67 Respiratory Rate Blood Pressure O2 Sat by Pulse 100 100 100 Oximetry O2 Sat by Pulse Oximetry [ Bilateral] 02/01/22 02/01/22 02/01/22 14:34 14:39 14:44 Temperature Pulse Rate 71 72 71 Respiratory Rate Blood Pressure O2 Sat by Pulse 99 99 100 Oximetry O2 Sat by Pulse Oximetry [ Bilateral] 02/01/22 02/01/22 02/01/22 15:13 15:14 15:16 Temperature Pulse Rate 67 62 60 Respiratory Rate Blood Pressure 103/53 O2 Sat by Pulse 100 87 Oximetry O2 Sat by Pulse Oximetry [ Bilateral] 02/01/22 02/01/22 02/01/22 15:18 15:23 15:26 Temperature Pulse Rate 61 64 64 Respiratory Rate Blood Pressure O2 Sat by Pulse 100 100 89 Oximetry O2 Sat by Pulse Oximetry [ Bilateral] 02/01/22 02/01/22 02/01/22 15:28 15:30 15:33 Temperature Pulse Rate 63 69 69 Respiratory Rate Blood Pressure 92/51 O2 Sat by Pulse 100 100 Oximetry O2 Sat by Pulse Oximetry [ Bilateral] 02/01/22 02/01/22 02/01/22 15:34 15:38 15:40 Temperature Pulse Rate 66 68 76 Respiratory Rate Blood Pressure O2 Sat by Pulse 85 97 89 Oximetry O2 Sat by Pulse Oximetry [ Bilateral] 02/01/22 02/01/22 02/01/22 15:43 15:46 15:48 Temperature Pulse Rate 81 68 72 Respiratory Rate Blood Pressure O2 Sat by Pulse 91 83 L 100 Oximetry O2 Sat by Pulse Oximetry [ Bilateral] 02/01/22 02/01/22 02/01/22 15:53 15:58 16:00 Temperature 98.2 F Pulse Rate 64 71 71 Respiratory 18 Rate Blood Pressure O2 Sat by Pulse 100 100 100 Oximetry O2 Sat by Pulse Oximetry [ Bilateral] 02/01/22 02/01/22 02/01/22 16:03 16:05 16:08 Temperature Pulse Rate 62 67 60 Respiratory Rate Blood Pressure 110/53 O2 Sat by Pulse 100 100 Oximetry O2 Sat by Pulse Oximetry [ Bilateral] 02/01/22 02/01/22 02/01/22 16:13 16:18 16:23 Temperature Pulse Rate 62 99 H 72 Respiratory Rate Blood Pressure O2 Sat by Pulse 100 90 100 Oximetry O2 Sat by Pulse Oximetry [ Bilateral] 02/01/22 02/01/22 02/01/22 16:28 16:32 16:33 Temperature Pulse Rate 63 67 66 Respiratory Rate Blood Pressure 93/55 O2 Sat by Pulse 100 97 Oximetry O2 Sat by Pulse Oximetry [ Bilateral] 02/01/22 02/01/22 17:28 17:33 Temperature Pulse Rate 59 L 59 L Respiratory Rate Blood Pressure O2 Sat by Pulse 100 100 Oximetry O2 Sat by Pulse Oximetry [ Bilateral] - Exam Cardiovascular: Regular rate Lungs: Normal air movement Abdomen: Present: normal appearance Uterus: Present: normal FHR: category 1 Uterine Contraction Monitor Mode: External Cervical Dilatation: 0 Cervical Effacement Percentage: 20 station: -3 Uterine Contraction Pattern: Irregular Uterine Tone Measurement Phase: Resting Uterine Contraction Intensity: Mild Extremities: normal - Labs Labs: Abnormal Labs 01/31/22 01/31/22 16:54 20:44 WBC 11.4 H U Epithel Cells (Auto) 22.0 H Laboratory Results - last 24 hr 01/31/22 01/31/22 01/31/22 16:54 20:44 20:44 WBC 11.4 H RBC 4.11 Hgb 12.0 Hct 35.9 MCV 87 MCH 29 MCHC 34 RDW 13.4 Plt Count 212 Urine Color Yellow Urine Turbidity Clear Urine pH 6.0 Ur Specific [place] 1.030 Urine Protein 30 mg/dl Urine Glucose (UA) Negative Urine Ketones Negative Urine Blood Negative Urine Nitrite Negative Urine Bilirubin Negative Urine Urobilinogen 0.0 Ur Leukocyte Esterase 1+ Urine WBC (Auto) 3.0 Urine RBC (Auto) 5.0 U Epithel Cells (Auto) 22.0 H Urine Bacteria (Auto) 1+ Urine Mucus 3+ Syphilis IgG/IgM Ab Nonreactive SARS-CoV-2 (PCR) Blood Type Antibody Screen 01/31/22 02/01/22 20:44 11:55 WBC RBC Hgb Hct MCV MCH MCHC RDW Plt Count Urine Color Urine Turbidity Urine pH Ur Specific [place] Urine Protein Urine Glucose (UA) Urine Ketones Urine Blood Urine Nitrite Urine Bilirubin Urine Urobilinogen Ur Leukocyte Esterase Urine WBC (Auto) Urine RBC (Auto) U Epithel Cells (Auto) Urine Bacteria (Auto) Urine Mucus Syphilis IgG/IgM Ab SARS-CoV-2 (PCR) Negative Blood Type A POSITIVE Antibody Screen Negative
--- NOTE | 2022-02-02 08:18 | Progress Note ---
Assessment and Plan patient c/o some abdominal pain, plan to give pit break, allow AM care and breakfast then restart active management pitocin. Epidural PRN. Anticipate . - Patient Problems (1) 37 weeks gestation of Current Visit: Yes Status: Acute (2) IUGR (intrauterine growth restriction) Current Visit: Yes Status: Acute Subjective - Subjective Date of service: 02/02/22 Principal diagnosis: 37.4 IUGR Interval history: EDC Confirmation: 02/19/2022 Past History : 1 Past Medical History: Reviewed and updated today: Negative Past Surgical History: Reviewed and updated today: Negative General Comments - FH: Mother- , heart disease, thyroid disorder, HTN Social History: Previous ETOH use, quit with Risk Factors: Smoked Tobacco Use: Never smoker Smokeless Tobacco Use: Never Passive Smoke Exposure: no HIV High Risk Behavior: no Exercise: no Seatbelt Use: 100 % No Dietary Counseling Reason: pn yes Alcohol Use: no Drug Use: no Past Medical History Anesthesia Complications: negative Anemia: negative Autoimmune Disorder: negative Bleeding Disorder: negative Blood Transfusions: negative Breast Disease: negative Diabetes: negative Heart Disease: negative Hypertension: negative Hepatitis/Liver Disease: negative Kidney Disease/UTI: negative Neurologic/Epilepsy/Migraines: negative Phlebitis/Varicosities: negative Psychiatric: negative Pulmonary Disease/Asthma: negative Thyroid Disease: negative Hospitalizations: negative Surgery (Non-workforce advisor): Negative Infertility: negative Uterine Anomaly: negative Family Hx: Mother- , heart disease, thyroid disorder, HTN Social Hx: Previous ETOH use, quit with Infection History Hx of STD: chlamydia HIV Risk Eval: no Personal hx. of genital herpes: no Genetic History Congenital Heart Defect: Mom: no Meron Disease: Mom: no Thalassemia Mom: no Neural Tube Defect Mom: no Down's Syndrome Mom: no Quique-Sachs Mom: no Sickle Cell Disease/Trait Mom: no Hemophilia Mom: no Muscular Dystrophy Mom: no Cystic Fibrosis Mom: no [place] Chorea Mom: no Mental Retardation Mom: no Fragile X Mom: no Other Genetic/Chromosomal Disorder Mom: no Child w/other defect Mom: no Patient reports: movement normal, contractions, no new complaints, no loss of fluid, no vaginal bleeding Objective - Vital Signs Vital Signs: Vital Signs - 12hr 02/01/22 02/01/22 02/01/22 21:51 21:56 22:01 Pulse Rate 68 75 71 Blood Pressure O2 Sat by Pulse 100 99 100 Oximetry 02/01/22 02/01/22 02/01/22 22:06 22:11 22:21 Pulse Rate 61 74 76 Blood Pressure O2 Sat by Pulse 100 99 100 Oximetry 02/01/22 02/01/22 02/01/22 22:22 22:26 22:31 Pulse Rate 67 75 64 Blood Pressure 109/55 O2 Sat by Pulse 99 99 Oximetry 02/01/22 02/01/22 02/01/22 22:36 22:41 22:46 Pulse Rate 65 69 63 Blood Pressure O2 Sat by Pulse 100 100 100 Oximetry 02/01/22 02/01/22 02/01/22 22:51 22:56 23:01 Pulse Rate 71 62 63 Blood Pressure O2 Sat by Pulse 100 100 100 Oximetry 02/01/22 02/01/22 02/01/22 23:06 23:11 23:16 Pulse Rate 66 65 65 Blood Pressure O2 Sat by Pulse 100 100 100 Oximetry 02/01/22 02/01/22 02/01/22 23:22 23:27 23:32 Pulse Rate 79 60 93 H Blood Pressure O2 Sat by Pulse 100 100 100 Oximetry 02/01/22 02/01/22 02/01/22 23:38 23:43 23:48 Pulse Rate 56 L 64 63 Blood Pressure O2 Sat by Pulse 100 99 100 Oximetry 02/01/22 02/01/22 02/02/22 23:53 23:58 00:03 Pulse Rate 62 66 60 Blood Pressure O2 Sat by Pulse 99 100 100 Oximetry 02/02/22 02/02/22 02/02/22 00:08 00:13 00:18 Pulse Rate 56 L 61 62 Blood Pressure O2 Sat by Pulse 99 100 99 Oximetry 02/02/22 02/02/22 02/02/22 00:48 00:53 00:58 Pulse Rate 70 61 64 Blood Pressure O2 Sat by Pulse 100 100 100 Oximetry 02/02/22 02/02/22 02/02/22 01:03 01:08 01:13 Pulse Rate 67 63 61 Blood Pressure O2 Sat by Pulse 100 100 99 Oximetry 02/02/22 02/02/22 02/02/22 01:18 01:23 01:28 Pulse Rate 60 60 59 L Blood Pressure O2 Sat by Pulse 99 99 99 Oximetry 02/02/22 02/02/22 02/02/22 01:33 01:38 01:43 Pulse Rate 59 L 58 L 58 L Blood Pressure O2 Sat by Pulse 98 98 99 Oximetry 02/02/22 02/02/22 02/02/22 01:48 01:53 01:58 Pulse Rate 56 L 55 L 55 L Blood Pressure O2 Sat by Pulse 99 99 99 Oximetry 02/02/22 02/02/22 02/02/22 02:03 02:08 02:13 Pulse Rate 54 L 55 L 59 L Blood Pressure O2 Sat by Pulse 100 99 99 Oximetry 02/02/22 02/02/22 02/02/22 02:18 02:23 02:28 Pulse Rate 52 L 58 L 54 L Blood Pressure O2 Sat by Pulse 99 100 100 Oximetry 02/02/22 02/02/22 02/02/22 02:33 02:38 02:43 Pulse Rate 59 L 61 61 Blood Pressure O2 Sat by Pulse 99 98 98 Oximetry 02/02/22 02/02/22 02/02/22 02:48 02:53 02:58 Pulse Rate 60 59 L 58 L Blood Pressure O2 Sat by Pulse 98 98 98 Oximetry 02/02/22 02/02/22 02/02/22 03:03 03:08 03:17 Pulse Rate 58 L 60 Blood Pressure O2 Sat by Pulse 98 98 81 L Oximetry 02/02/22 02/02/22 02/02/22 03:20 03:22 03:37 Pulse Rate 57 L 60 Blood Pressure O2 Sat by Pulse 88 89 100 Oximetry 02/02/22 02/02/22 02/02/22 03:42 03:47 03:52 Pulse Rate 57 L 61 58 L Blood Pressure O2 Sat by Pulse 100 99 99 Oximetry 02/02/22 02/02/22 02/02/22 04:00 04:05 04:10 Pulse Rate 65 65 59 L Blood Pressure O2 Sat by Pulse 100 99 99 Oximetry 02/02/22 02/02/22 02/02/22 04:15 04:20 04:25 Pulse Rate 57 L 59 L 60 Blood Pressure O2 Sat by Pulse 99 99 99 Oximetry 02/02/22 02/02/22 02/02/22 04:30 04:35 04:40 Pulse Rate 61 60 63 Blood Pressure O2 Sat by Pulse 98 99 99 Oximetry 02/02/22 02/02/22 02/02/22 04:45 04:50 04:55 Pulse Rate 60 60 59 L Blood Pressure O2 Sat by Pulse 99 99 99 Oximetry 02/02/22 02/02/22 02/02/22 05:00 05:05 05:10 Pulse Rate 61 57 L 55 L Blood Pressure O2 Sat by Pulse 98 99 99 Oximetry 02/02/22 02/02/22 02/02/22 05:15 05:20 05:25 Pulse Rate 60 67 53 L Blood Pressure O2 Sat by Pulse 100 99 100 Oximetry 02/02/22 02/02/22 02/02/22 05:30 05:35 05:40 Pulse Rate 63 59 L 61 Blood Pressure O2 Sat by Pulse 100 100 100 Oximetry 02/02/22 02/02/22 02/02/22 05:45 05:50 05:55 Pulse Rate 55 L 58 L 62 Blood Pressure O2 Sat by Pulse 100 99 99 Oximetry 02/02/22 02/02/22 02/02/22 06:00 06:05 06:10 Pulse Rate 60 56 L 56 L Blood Pressure O2 Sat by Pulse 100 100 99 Oximetry 02/02/22 02/02/22 02/02/22 06:15 06:20 06:25 Pulse Rate 55 L 54 L 56 L Blood Pressure O2 Sat by Pulse 100 100 100 Oximetry 02/02/22 02/02/22 02/02/22 06:30 06:35 06:40 Pulse Rate 56 L 60 55 L Blood Pressure O2 Sat by Pulse 100 100 100 Oximetry 02/02/22 02/02/22 02/02/22 06:45 06:50 06:55 Pulse Rate 59 L 68 64 Blood Pressure O2 Sat by Pulse 99 100 99 Oximetry 02/02/22 02/02/22 02/02/22 07:00 07:05 07:10 Pulse Rate 56 L 61 59 L Blood Pressure O2 Sat by Pulse 99 100 100 Oximetry 02/02/22 02/02/22 02/02/22 07:15 07:20 07:25 Pulse Rate 66 70 90 Blood Pressure O2 Sat by Pulse 100 100 100 Oximetry 02/02/22 02/02/22 02/02/22 07:30 07:35 07:40 Pulse Rate 60 66 68 Blood Pressure O2 Sat by Pulse 100 100 100 Oximetry 02/02/22 02/02/22 02/02/22 07:45 07:50 07:55 Pulse Rate 60 74 76 Blood Pressure O2 Sat by Pulse 100 100 99 Oximetry 02/02/22 02/02/22 02/02/22 08:00 08:05 08:10 Pulse Rate 71 65 56 L Blood Pressure O2 Sat by Pulse 99 100 100 Oximetry - Exam Breasts: normal Cardiovascular: Regular rate Lungs: Normal air movement Abdomen: Present: normal appearance, soft Vulva: both: normal Uterus: Present: normal FHR: auscultation normal Uterine Contraction Monitor Mode: External Cervical Dilatation: 2 (per RN) - Labs Labs: Abnormal Labs 01/31/22 01/31/22 16:54 20:44 WBC 11.4 H U Epithel Cells (Auto) 22.0 H Laboratory Results - last 24 hr 02/01/22 11:55 SARS-CoV-2 (PCR) Negative
[2022-02-02] MEDS: OXYTOCIN DRIP 30 UNITS/500 ML BAG IV SCH ×2 (10:50→11:47)
[2022-02-02] MEDS: ONDANSETRON 4 MG/2 ML INJ IV PRN (11:19)
--- NOTE | 2022-02-02 13:25 | Progress Note ---
Assessment and Plan pt requesting IV sedation for contraction pain, SVE unchanged from this morning, IBOW noted. Pitocin currently infusing at 8mU. Orders for stadol in EMR, discussed epidural when patient feels she needs it. - Patient Problems (1) 37 weeks gestation of Current Visit: Yes Status: Acute (2) IUGR (intrauterine growth restriction) Current Visit: Yes Status: Acute Subjective - Subjective Date of service: 02/02/22 Principal diagnosis: 37.4 IUGR Interval history: EDC Confirmation: 02/19/2022 Past History : 1 Past Medical History: Reviewed and updated today: Negative Past Surgical History: Reviewed and updated today: Negative General Comments - FH: Mother- , heart disease, thyroid disorder, HTN Social History: Previous ETOH use, quit with Risk Factors: Smoked Tobacco Use: Never smoker Smokeless Tobacco Use: Never Passive Smoke Exposure: no HIV High Risk Behavior: no Exercise: no Seatbelt Use: 100 % No Dietary Counseling Reason: pn yes Alcohol Use: no Drug Use: no Past Medical History Anesthesia Complications: negative Anemia: negative Autoimmune Disorder: negative Bleeding Disorder: negative Blood Transfusions: negative Breast Disease: negative Diabetes: negative Heart Disease: negative Hypertension: negative Hepatitis/Liver Disease: negative Kidney Disease/UTI: negative Neurologic/Epilepsy/Migraines: negative Phlebitis/Varicosities: negative Psychiatric: negative Pulmonary Disease/Asthma: negative Thyroid Disease: negative Hospitalizations: negative Surgery (Non-nurse advisor): Negative Infertility: negative Uterine Anomaly: negative Family Hx: Mother- , heart disease, thyroid disorder, HTN Social Hx: Previous ETOH use, quit with Infection History Hx of STD: chlamydia HIV Risk Eval: no Personal hx. of genital herpes: no Genetic History Congenital Heart Defect: Mom: no Meron Disease: Mom: no Thalassemia Mom: no Neural Tube Defect Mom: no Down's Syndrome Mom: no Quique-Sachs Mom: no Sickle Cell Disease/Trait Mom: no Hemophilia Mom: no Muscular Dystrophy Mom: no Cystic Fibrosis Mom: no Mary Chorea Mom: no Mental Retardation Mom: no Fragile X Mom: no Other Genetic/Chromosomal Disorder Mom: no Child w/other defect Mom: no Patient reports: movement normal, contractions, no new complaints, no loss of fluid, no vaginal bleeding Objective - Vital Signs Vital Signs: Vital Signs - 12hr 02/02/22 02/02/22 02/02/22 01:28 01:33 01:38 Temperature Pulse Rate 59 L 59 L 58 L Respiratory Rate Blood Pressure Blood Pressure [Left] O2 Sat by Pulse 99 98 98 Oximetry O2 Sat by Pulse Oximetry [ Bilateral] 02/02/22 02/02/22 02/02/22 01:43 01:48 01:53 Temperature Pulse Rate 58 L 56 L 55 L Respiratory Rate Blood Pressure Blood Pressure [Left] O2 Sat by Pulse 99 99 99 Oximetry O2 Sat by Pulse Oximetry [ Bilateral] 02/02/22 02/02/22 02/02/22 01:58 02:03 02:08 Temperature Pulse Rate 55 L 54 L 55 L Respiratory Rate Blood Pressure Blood Pressure [Left] O2 Sat by Pulse 99 100 99 Oximetry O2 Sat by Pulse Oximetry [ Bilateral] 02/02/22 02/02/22 02/02/22 02:13 02:18 02:23 Temperature Pulse Rate 59 L 52 L 58 L Respiratory Rate Blood Pressure Blood Pressure [Left] O2 Sat by Pulse 99 99 100 Oximetry O2 Sat by Pulse Oximetry [ Bilateral] 02/02/22 02/02/22 02/02/22 02:28 02:33 02:38 Temperature Pulse Rate 54 L 59 L 61 Respiratory Rate Blood Pressure Blood Pressure [Left] O2 Sat by Pulse 100 99 98 Oximetry O2 Sat by Pulse Oximetry [ Bilateral] 02/02/22 02/02/22 02/02/22 02:43 02:48 02:53 Temperature Pulse Rate 61 60 59 L Respiratory Rate Blood Pressure Blood Pressure [Left] O2 Sat by Pulse 98 98 98 Oximetry O2 Sat by Pulse Oximetry [ Bilateral] 02/02/22 02/02/22 02/02/22 02:58 03:03 03:08 Temperature Pulse Rate 58 L 58 L 60 Respiratory Rate Blood Pressure Blood Pressure [Left] O2 Sat by Pulse 98 98 98 Oximetry O2 Sat by Pulse Oximetry [ Bilateral] 02/02/22 02/02/22 02/02/22 03:17 03:20 03:22 Temperature Pulse Rate 57 L Respiratory Rate Blood Pressure Blood Pressure [Left] O2 Sat by Pulse 81 L 88 89 Oximetry O2 Sat by Pulse Oximetry [ Bilateral] 02/02/22 02/02/22 02/02/22 03:37 03:42 03:47 Temperature Pulse Rate 60 57 L 61 Respiratory Rate Blood Pressure Blood Pressure [Left] O2 Sat by Pulse 100 100 99 Oximetry O2 Sat by Pulse Oximetry [ Bilateral] 02/02/22 02/02/22 02/02/22 03:52 04:00 04:05 Temperature Pulse Rate 58 L 65 65 Respiratory Rate Blood Pressure Blood Pressure [Left] O2 Sat by Pulse 99 100 99 Oximetry O2 Sat by Pulse Oximetry [ Bilateral] 02/02/22 02/02/22 02/02/22 04:10 04:15 04:20 Temperature Pulse Rate 59 L 57 L 59 L Respiratory Rate Blood Pressure Blood Pressure [Left] O2 Sat by Pulse 99 99 99 Oximetry O2 Sat by Pulse Oximetry [ Bilateral] 02/02/22 02/02/22 02/02/22 04:25 04:30 04:35 Temperature Pulse Rate 60 61 60 Respiratory Rate Blood Pressure Blood Pressure [Left] O2 Sat by Pulse 99 98 99 Oximetry O2 Sat by Pulse Oximetry [ Bilateral] 02/02/22 02/02/22 02/02/22 04:40 04:45 04:50 Temperature Pulse Rate 63 60 60 Respiratory Rate Blood Pressure Blood Pressure [Left] O2 Sat by Pulse 99 99 99 Oximetry O2 Sat by Pulse Oximetry [ Bilateral] 02/02/22 02/02/22 02/02/22 04:55 05:00 05:05 Temperature Pulse Rate 59 L 61 57 L Respiratory Rate Blood Pressure Blood Pressure [Left] O2 Sat by Pulse 99 98 99 Oximetry O2 Sat by Pulse Oximetry [ Bilateral] 02/02/22 02/02/22 02/02/22 05:10 05:15 05:20 Temperature Pulse Rate 55 L 60 67 Respiratory Rate Blood Pressure Blood Pressure [Left] O2 Sat by Pulse 99 100 99 Oximetry O2 Sat by Pulse Oximetry [ Bilateral] 02/02/22 02/02/22 02/02/22 05:25 05:30 05:35 Temperature Pulse Rate 53 L 63 59 L Respiratory Rate Blood Pressure Blood Pressure [Left] O2 Sat by Pulse 100 100 100 Oximetry O2 Sat by Pulse Oximetry [ Bilateral] 02/02/22 02/02/22 02/02/22 05:40 05:45 05:50 Temperature Pulse Rate 61 55 L 58 L Respiratory Rate Blood Pressure Blood Pressure [Left] O2 Sat by Pulse 100 100 99 Oximetry O2 Sat by Pulse Oximetry [ Bilateral] 08/04/22 08/04/22 08/04/22 05:55 06:00 06:05 Temperature Pulse Rate 62 60 56 L Respiratory Rate Blood Pressure Blood Pressure [Left] O2 Sat by Pulse 99 100 100 Oximetry O2 Sat by Pulse Oximetry [ Bilateral] 02/02/22 02/02/22 02/02/22 06:10 06:15 06:20 Temperature Pulse Rate 56 L 55 L 54 L Respiratory Rate Blood Pressure Blood Pressure [Left] O2 Sat by Pulse 99 100 100 Oximetry O2 Sat by Pulse Oximetry [ Bilateral] 02/02/22 02/02/22 02/02/22 06:25 06:30 06:35 Temperature Pulse Rate 56 L 56 L 60 Respiratory Rate Blood Pressure Blood Pressure [Left] O2 Sat by Pulse 100 100 100 Oximetry O2 Sat by Pulse Oximetry [ Bilateral] 02/02/22 02/02/22 02/02/22 06:40 06:45 06:50 Temperature Pulse Rate 55 L 59 L 68 Respiratory Rate Blood Pressure Blood Pressure [Left] O2 Sat by Pulse 100 99 100 Oximetry O2 Sat by Pulse Oximetry [ Bilateral] 02/02/22 02/02/22 02/02/22 06:55 07:00 07:05 Temperature Pulse Rate 64 56 L 61 Respiratory Rate Blood Pressure Blood Pressure [Left] O2 Sat by Pulse 99 99 100 Oximetry O2 Sat by Pulse Oximetry [ Bilateral] 02/02/22 02/02/22 02/02/22 07:10 07:15 07:20 Temperature Pulse Rate 59 L 66 70 Respiratory Rate Blood Pressure Blood Pressure [Left] O2 Sat by Pulse 100 100 100 Oximetry O2 Sat by Pulse Oximetry [ Bilateral] 02/02/22 02/02/22 02/02/22 07:25 07:30 07:35 Temperature Pulse Rate 90 60 66 Respiratory Rate Blood Pressure Blood Pressure [Left] O2 Sat by Pulse 100 100 100 Oximetry O2 Sat by Pulse Oximetry [ Bilateral] 02/02/22 02/02/22 02/02/22 07:40 07:45 07:50 Temperature Pulse Rate 68 60 74 Respiratory Rate Blood Pressure Blood Pressure [Left] O2 Sat by Pulse 100 100 100 Oximetry O2 Sat by Pulse Oximetry [ Bilateral] 02/02/22 02/02/22 02/02/22 07:55 08:00 08:05 Temperature Pulse Rate 76 71 65 Respiratory Rate Blood Pressure Blood Pressure [Left] O2 Sat by Pulse 99 99 100 Oximetry O2 Sat by Pulse Oximetry [ Bilateral] 02/02/22 02/02/22 02/02/22 08:10 08:15 08:20 Temperature Pulse Rate 56 L 62 76 Respiratory Rate Blood Pressure Blood Pressure [Left] O2 Sat by Pulse 100 100 99 Oximetry O2 Sat by Pulse Oximetry [ Bilateral] 02/02/22 02/02/22 02/02/22 08:40 08:43 08:44 Temperature 98.2 F Pulse Rate 62 62 Respiratory 16 Rate Blood Pressure 114/59 Blood Pressure 114/59 [Left] O2 Sat by Pulse Oximetry O2 Sat by Pulse 100 Oximetry [ Bilateral] - Exam Breasts: normal Cardiovascular: Regular rate Lungs: Clear to auscultation, Normal air movement Abdomen: Present: normal appearance, soft Vulva: both: normal Uterus: Present: normal FHR: category 1 Uterine Contraction Monitor Mode: External Cervical Dilatation: 2 Cervical Effacement Percentage: 70 station: -1 Uterine Contraction Frequency (min): 2-3 Uterine Contraction Duration: 60 Uterine Contraction Pattern: Regular Uterine Tone Measurement Phase: Contraction Uterine Contraction Intensity: Moderate Extremities: normal Deep Tendon Reflex Grade: Normal +2 - Labs Labs: Abnormal Labs 01/31/22 01/31/22 16:54 20:44 WBC 11.4 H U Epithel Cells (Auto) 22.0 H
[2022-02-02] MEDS ORDERED: BUTORPHANOL 2 MG/1 ML INJ IV PRN (14:00)
--- NOTE | 2022-02-02 16:39 | Procedure Note ---
OB Delivery Note - Delivery Date of Delivery: 02/02/22 Wellness Ambassador: MARLI MOREL (Supervised by Charles taylor CNM) Estimated blood loss: 100cc - Vaginal Delivery presentation: vertex Delivery position: OA Intrapartum events: other(please specify) (IOL for severe IUGR) Delivery induction: oxytocin Delivery augmentation: pitocin Delivery monitor: external FHT, external uterine Route of delivery: Delivery placenta: spontaneous (to pathology d/T Severe IUGR) Delivery cord: 3 umbilical vessels Episiotomy: none Delivery laceration: none Anesthesia: intravenous Delivery comments: called urgently to room as patient was complete and , SROM approx 1500. male born over intact perineum, placed skin to skin on mom's abdomen. 3 vessel cord clamped and cut. Placenta delivered intact and complete. no lacerations to repair. Apgars 8/9, wt 4#8oz, EBL 100. All counts correct. mother and remain LDR stable. - A at 1 minute: 8 at 5 minutes: 9 Infant Gender: Male (4#8oz)
[2022-02-02] MEDS ORDERED: LANOLIN/ZINC/DIMETHICONE (LANSINOH) 7 GM TP PRN (17:48)
[2022-02-02] MEDS ORDERED: MAGNESIUM HYDROXIDE (MOM) ORAL LIQD UDC PO PRN (17:48)
[2022-02-02] MEDS ORDERED: BENZOCAINE/MENTHOL 20/0.5% TOP SPRAY 56 GM TP PRN (17:48)
[2022-02-02] MEDS ORDERED: ACETAMINOPHEN 325 MG TAB PO PRN (17:48)
[2022-02-02] MEDS ORDERED: WITCH HAZEL/ GLYCERIN PAD TP PRN (17:48)
[2022-02-02] MEDS ORDERED: diphenhydrAMINE 25 MG CAP PO PRN (17:48)
[2022-02-02] MEDS ORDERED: PROMETHAZINE 25 MG TAB PO PRN (17:48)
[2022-02-02] MEDS: IBUPROFEN 800 MG TAB PO SCH (17:57)
[2022-02-03] MEDS: IBUPROFEN 800 MG TAB PO SCH ×3 (00:23→20:01)
[2022-02-03] MEDS: FERROUS SULFATE 325 MG TAB PO SCH ×2 (00:23→21:13)
[2022-02-03] MEDS: DOCUSATE SODIUM 100 MG CAP PO SCH ×2 (00:23→21:13)
[2022-02-03 07:48] LABS: Hematocrit 34.3 % (30.3-42.9)
[2022-02-03] MEDS ORDERED: PRENATAL VIT27-FE FUMARATE-FOLIC ACID VIT TAB PO SCH (10:00)
--- NOTE | 2022-02-03 11:17 | Event Note ---
Date: 02/03/22 Went to check on patient is was not in her room. In NICU visiting with . Will round on patient this afternoon.
[2022-02-03] MEDS ORDERED: TETANUS,DIPH,PERTUSS(ACELL) VACCINE 0.5 ML SYRINGE IM ONE (16:40)
[2022-02-04] MEDS: IBUPROFEN 800 MG TAB PO SCH ×4 (01:59→12:41)
--- NOTE | 2022-02-04 08:05 | Discharge Summary ---
<BRETT LARA - Last Filed: 02/04/22 08:04> Providers - Providers Date of Admission: 01/31/22 17:30 Date of discharge: 02/04/22 Attending physician: BRETT LARA Primary care physician: BRETT LARA Hospitalization Reason for admission: active labor, other (deliver) Condition at discharge: Good Disposition: 01 HOME / SELF CARE / HOMELESS Plan - Provider Discharge Summary Additional instructions: [] Smoking cessation referral if applicable(refer to patient education folder for contact #) [] Refer to [facility] Booklet Call your doctor immediately for: * Fever > 100.5 * Heavy vaginal bleeding ( >1 pad per hour) * Severe persistent headache * Shortness of breath * Reddened, hot, painful area to leg or breast * Drainage or odor from incision. * Keep incision clean and dry at all times and follow doctor's instructions regarding bathing/showering - Follow up plan Follow up: BRETT LARA MD [Primary Care Provider] - 7 Days Forms: [facility] Discharge Summary, Discharge Signature Page <AUTUMN BUSTOS - Last Filed: 02/04/22 10:35> Providers - Providers Date of Admission: 01/31/22 17:30 Attending physician: BRETT LARA Primary care physician: BRETT LARA Hospitalization Reason for admission: other Delivery: Procedure details: see delivery note Discharge diagnosis: IUP at term delivered baby: male Hospital course: Pt admitted for IOL d/t IUGR. PP course has not been complicated. Will d/c home today. - Discharge Diagnoses (1) (normal spontaneous vaginal delivery) Status: Acute (2) 37 weeks gestation of Status: Acute (3) IUGR (intrauterine growth restriction) Status: Acute Plan - Provider Discharge Summary Additional instructions: [] Smoking cessation referral if applicable(refer to patient education folder for contact #) [] Refer to [facility] Booklet Call your doctor immediately for: * Fever > 100.5 * Heavy vaginal bleeding ( >1 pad per hour) * Severe persistent headache * Shortness of breath * Reddened, hot, painful area to leg or breast * Drainage or odor from incision. * Keep incision clean and dry at all times and follow doctor's instructions regarding bathing/showering
[2022-02-04 08:45] VITALS: BP 112/55
[2022-02-04] MEDS: FERROUS SULFATE 325 MG TAB PO SCH (12:40)
[2022-02-04] MEDS: DOCUSATE SODIUM 100 MG CAP PO SCH (12:41)
== END 2022-02-04 16:00 | disposition home or self-care (01) | DRG 775 ==
LOC: TRG 16:00 → APU 16:02 → TRG 17:38 → LD 21:05 → OB 02-02 18:06
PROVIDERS: ADMIT Obstetrics & Gynecology; ATTEND Obstetrics & Gynecology
PROC: 10E0XZZ Delivery of Products of Conception, External Approach (ICD-10-PCS; principal; 2022-02-02)
PROC: 3E0234Z Introduction of Serum, Toxoid and Vaccine into Muscle, Percutaneous Approach (ICD-10-PCS; 2022-02-03)
DX: O36.5930 Maternal care for other known or suspected poor fetal growth, third trimester, not applicable or unspecified (principal); Z3A.37 37 weeks gestation of pregnancy; Z20.822 Contact with and (suspected) exposure to COVID-19; Z37.0 Single live birth; Z23 Encounter for immunization
CPT/HCPCS: 36415; 59200; 76816; 76819; 76820; 81001; 85014; 85018; 85027; 86592; 86850; 86900; 86901; 88307; G0378; J0595; J2405; J2590; J7120; U0003